=== PATIENT | female | born 1970 ===

== ENCOUNTER 2016-12-22 09:10 | Emergency (ER) | payer OTHER ==
[2016-12-22 09:21] VITALS: BMI 28.5
[2016-12-22 09:23] VITALS: BP 155/87; RESP 18; TEMP 98.3
[2016-12-22 09:29] VITALS: PULSE 99; O2SAT 100
--- NOTE | 2016-12-22 10:13 | ED PDOC ---
HPI: Back Time Seen by Provider: 12/22/16 10:10 Chief Complaint (Nursing): Back Pain Chief Complaint (Provider): low back pain History Per: Patient Additional Complaint(s): Patient states that she injured her lower back last week at work. She was seen at an emergency department in [place], [place], had x-rays done of LS Spine at that time and was prescribed Flexeril and Naprosyn. She is out of these medications and is requesting refills. She does state these meds are helping the pain. She is awaiting follow-up with an orthopedist from [employer]. Patient denies radiation of pain to lower extremities, no bowel or bladder dysfunction. Patient has not taken anything for pain in the past 4 days. Past Medical History Reviewed: Historical Data, Nursing Documentation, Vital Signs Vital Signs: Last Vital Signs Temp 98.3 F 12/22/16 09:22 Pulse 99 H 12/22/16 09:26 Resp 18 12/22/16 09:26 BP 155/87 H 12/22/16 09:26 Pulse Ox 100 12/22/16 09:26 - Medical History PMH: No Chronic Diseases - Surgical History Surgical History: No Surg Hx - Family History Family History: States: No Known Family Hx - Living Arrangements Living Arrangements: With Family - Social History Current smoker - smoking cessation education provided: No Alcohol: None Drugs: Denies - Home Medications Home Medications: Ambulatory Orders Medication Instructions Recorded Cyclobenzaprine [Cyclobenzaprine 10 mg PO TID PRN #20 tab 12/22/16 HCl] Naproxen [Naprosyn] 500 mg PO BID #20 tab 12/22/16 - Allergies Allergies/Adverse Reactions: Allergies Allergy/AdvReac Type Severity Reaction Status Date / Time No Known Allergies Allergy Verified 12/22/16 09:26 Review of Systems ROS Statement: Except As Marked, All Systems Reviewed And Found Negative Constitutional: Negative for: Fever, Chills Respiratory: Negative for: Cough Gastrointestinal: Negative for: Nausea, Vomiting Genitourinary Female: Negative for: Dysuria, Frequency, Incontinence, Hematuria Musculoskeletal: Positive for: Back Pain. Negative for: Leg Pain Physical Exam - Reviewed Nursing Documentation Reviewed: Yes Vital Signs Reviewed: Yes - Physical Exam Appears: Positive for: Well, Non-toxic, No Acute Distress Head Exam: Positive for: ATRAUMATIC, NORMAL INSPECTION Neck: Positive for: Painless ROM Cardiovascular/Chest: Positive for: Regular Rate, Rhythm Respiratory: Positive for: Normal Breath Sounds Back: Positive for: Other (Diffuse tenderness across lower lumbar region, no CVA tenderness bilaterally, no midline tenderness or step-off, negative bilateral straight leg raise, patient able to toe and heel walk) Neurologic/Psych: Positive for: Alert, company laundry worker II-XII, Gait (steady). Negative for : Motor/Sensory Deficits - Laboratory Results Urine POC: Negative - ECG O2 Sat by Pulse Oximetry: 100 Pulse Ox Interpretation: Normal Medical Decision Making Medical Decision Making: Impression: Lumbar strain Plan: Urine test Toradol IM Patient feels better after Toradol injection. Rx flexeril and naprosyn given. Patient was advised to follow-up as directed with [employer] physician. Disposition - Clinical Impression Clinical Impression: Back strain, Back pain - Patient ED Disposition Is Patient to be Admitted: No Counseled Patient/Family Regarding: Diagnosis, Need For Followup, Rx Given - Disposition Referrals: Kim Liu MD [Staff Provider] - Disposition: Routine/Home Disposition Time: 10:59 Condition: GOOD Additional Instructions: Take prescription medications as directed as needed for pain. Rest and avoid heavy lifting. Follow-up with [employer] orthopedist. Prescriptions: Cyclobenzaprine [Cyclobenzaprine HCl] 10 mg PO TID PRN #20 tab PRN Reason: Muscle Spasm Naproxen [Naprosyn] 500 mg PO BID #20 tab Instructions: Back Pain (ED) Forms: [facility] ED School/Work Excuse Print Language: GERMAN
== END 2016-12-22 11:23 | disposition home or self-care (01) ==
LOC: H.ER 09:10
DX: M54.9 Dorsalgia, unspecified (principal)

== ENCOUNTER 2017-01-01 07:25 | Emergency (ER) | payer OTHER ==
[2017-01-01 07:38] VITALS: BP 141/72; PULSE 79; RESP 18; TEMP 99.3; O2SAT 100
--- NOTE | 2017-01-01 08:15 | ED PDOC ---
HPI: Back Time Seen by Provider: 01/01/17 07:34 Chief Complaint (Nursing): Back Pain Chief Complaint (Provider): Back Pain History Per: Patient History/Exam Limitations: no limitations Onset/Duration Of Symptoms: Days Current Symptoms Are (Timing): Still Present Quality Of Discomfort: "Pain" Severity: Moderate Previous Symptoms: Back Pain Associated Symptoms: None Additional Complaint(s): Patient is a 46 year old female who presents to ED for low back pain for 1 week. Patient states she injured her back at work, evaluated by [facility]ill [facility] and referred for PT. Notes she was started on pain medication but has not been taking it consistently. Denies radiation of pain, urinary changes, bowel changes , numbness,weakness or paresthesia Past Medical History Reviewed: Historical Data, Nursing Documentation, Vital Signs Vital Signs: Last Vital Signs Temp 99.3 F 01/01/17 07:37 Pulse 79 01/01/17 07:37 Resp 18 01/01/17 07:37 BP 141/72 01/01/17 07:37 Pulse Ox 100 01/01/17 07:37 - Medical History PMH: No Chronic Diseases - Surgical History Surgical History: No Surg Hx - Family History Family History: States: No Known Family Hx - Living Arrangements Living Arrangements: With Family - Home Medications Home Medications: Ambulatory Orders Medication Instructions Recorded Cyclobenzaprine [Cyclobenzaprine 10 mg PO TID #10 tab 01/01/17 HCl] Naproxen [Naprosyn] 500 mg PO Q12H #20 tab 01/01/17 - Allergies Allergies/Adverse Reactions: Allergies Allergy/AdvReac Type Severity Reaction Status Date / Time No Known Allergies Allergy Verified 01/01/17 08:04 Review of Systems ROS Statement: Except As Marked, All Systems Reviewed And Found Negative Constitutional: Negative for: Fever, Weakness Gastrointestinal: Negative for: Nausea, Vomiting, Diarrhea Genitourinary Female: Negative for: Incontinence Musculoskeletal: Positive for: Back Pain. Negative for: Neck Pain, Leg Pain Skin: Negative for: Rash Neurological: Negative for: Weakness, Numbness Physical Exam - Reviewed Nursing Documentation Reviewed: Yes Vital Signs Reviewed: Yes - Physical Exam Appears: Positive for: Non-toxic, No Acute Distress Head Exam: Negative for: ATRAUMATIC Skin: Positive for: Normal Color Eye Exam: Positive for: Normal appearance Neck: Positive for: Normal, Painless ROM, Supple Back: Positive for: Normal Inspection, Muscle Spasm (paralumbar with tenderness ), Other ((-) deformity). Negative for: Vertebral Tenderness, Decreased ROM Extremity: Positive for: Normal ROM Neurologic/Psych: Positive for: Alert, Oriented. Negative for: Motor/Sensory Deficits - ECG O2 Sat by Pulse Oximetry: 100 (RA) Pulse Ox Interpretation: Normal Medical Decision Making Medical Decision Making: Time: 0800 Initial impression: Back spasm Initial plan: -- Toradol IM Scribe Attestation: Documented by Sandra Wilkins acting as a scribe for Melvin Ashraf MD MD Scribe Attestation: All medical record entries made by the Scribe were at my direction and personally dictated by me. I have reviewed the chart and agree that the record accurately reflects my personal performance of the history, physical exam, medical decision making, and the department course for this patient. I have also personally directed, reviewed, and agree with the discharge instructions and disposition. Disposition - Clinical Impression Clinical Impression: Back pain - Patient ED Disposition Is Patient to be Admitted: No - Disposition Disposition: Routine/Home Disposition Time: 08:20 Condition: FAIR Prescriptions: Cyclobenzaprine [Cyclobenzaprine HCl] 10 mg PO TID #10 tab Naproxen [Naprosyn] 500 mg PO Q12H #20 tab Instructions: Back Pain (ED)
== END 2017-01-01 08:45 | disposition home or self-care (01) ==
LOC: MERGE 07:25 → H.ER 07:25
DX: M54.5 Low back pain (principal); X58.XXXA Exposure to other specified factors, initial encounter; Y99.0 Civilian activity done for income or pay

== ENCOUNTER 2017-03-04 11:29 | Emergency (ER) | payer OTHER ==
[2017-03-04 11:36] VITALS: BMI 29.2
[2017-03-04 11:37] VITALS: BP 111/81; PULSE 87; RESP 18; TEMP 98; O2SAT 100
[2017-03-04] MEDS ORDERED: Oxycodone/Acetaminophen 5/325 mg Tab PO STA (12:25)
--- NOTE | 2017-03-04 13:08 | ED PDOC ---
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 She states that the pain is now radiating down her right leg. The patient reports that she has been taking tylenol without relief. Denies blunt trauma, dysuria, hematuria, incontinence, saddle paresthesia, abdominal pain, nausea, vomiting. An ux design lead was used. ([id number]) Past Medical History Reviewed: Historical Data, Nursing Documentation, Vital Signs Vital Signs: Last Vital Signs Temp 98 F 03/04/17 11:36 Pulse 87 03/04/17 11:36 Resp 18 03/04/17 11:36 BP 111/81 03/04/17 11:36 Pulse Ox 100 03/04/17 11:36 - Medical History PMH: No Chronic Diseases Denies: Chronic Kidney Disease - Surgical History Surgical History: No Surg Hx - Family History Family History: States: Unknown Family Hx - Home Medications Home Medications: Ambulatory Orders Medication Instructions Recorded Cyclobenzaprine [Cyclobenzaprine 10 mg PO TID PRN #20 tab 12/22/16 HCl] Naproxen [Naprosyn] 500 mg PO BID #20 tab 12/22/16 Cyclobenzaprine [Cyclobenzaprine 10 mg PO TID #10 tab 01/01/17 HCl] Naproxen [Naprosyn] 500 mg PO Q12H #20 tab 01/01/17 Meloxicam [Mobic] 1 - 2 tab PO DAILY PRN #15 tab 03/04/17 Methocarbamol [Robaxin] 500 mg PO Q8 PRN #15 tab 03/04/17 - Allergies Allergies/Adverse Reactions: Allergies Allergy/AdvReac Type Severity Reaction Status Date / Time No Known Allergies Allergy Verified 03/04/17 11:53 Review of Systems Gastrointestinal: Negative for: Nausea, Vomiting, Abdominal Pain Genitourinary Female: Negative for: Dysuria, Incontinence, Hematuria Musculoskeletal: Positive for: Back Pain (Lower back pain.) Physical Exam - Reviewed Nursing Documentation Reviewed: Yes Vital Signs Reviewed: Yes - Physical Exam Appears: Positive for: Non-toxic, No Acute Distress Head Exam: Positive for: ATRAUMATIC, NORMOCEPHALIC Skin: Positive for: Normal Color, Warm. Negative for: Rash Gastrointestinal/Abdominal: Positive for: Normal Exam, Soft. Negative for: Tenderness Back: Positive for: Normal Inspection, Muscle Spasm (Right sided paralumbar muscle spasm.), Other (Straight leg raise positive about 30 degrees in right leg.). Negative for: L CVA Tenderness, R CVA Tenderness, Vertebral Tenderness Extremity: Positive for: Normal ROM. Negative for: Calf Tenderness (No calf tenderness bilaterally.), Deformity, Swelling Neurologic/Psych: Positive for: Alert, Oriented, Gait - Laboratory Results Urine POC: Negative - ECG O2 Sat by Pulse Oximetry: 100 (RA) Pulse Ox Interpretation: Normal - Progress ED Course And Treament: Pt. was offered LS spine x-rays but refused as she states she would like to just f/u with her PMD, Dr. Nice. Re-evaluation Time: 13:20 Condition: Re-examined, Improved Medical Decision Making Medical Decision Makin:05 Initial Impression: 46 year old female presenting with lower back pain. Initial Plan: * Upreg * Flexeril 10mg PO * Toradol 15mg IM * Percocet 5/325mg 1 tab PO * Reevalution Scribe Attestation Documented by Clarice Brooks acting as a scribe for Mariano Acevedo PA-C. Scribe Attestation All medical record entries made by the Scribe were at my direction and personally dictated by me. I have reviewed the chart and agree that the record accurately reflects my personal performance of the history, physical exam, medical decision making, and the department course for this patient. I have also personally directed, reviewed, and agree with the discharge instructions and disposition. Disposition - Clinical Impression Clinical Impression: Sciatica - Patient ED Disposition Is Patient to be Admitted: No - Disposition Referrals: [facility] [Outside] Disposition: Routine/Home Disposition Time: 13:23 Condition: IMPROVED Prescriptions: Meloxicam [Mobic] 1 - 2 tab PO DAILY PRN #15 tab PRN Reason: pain Methocarbamol [Robaxin] 500 mg PO Q8 PRN #15 tab PRN Reason: Muscle Spasm Instructions: Sciatica (ED) Forms: [facility] (Mauritian) Print Language: CHADIAN
== END 2017-03-04 13:42 | disposition home or self-care (01) ==
LOC: H.ER 11:29
DX: M54.30 Sciatica, unspecified side (principal)